=== PATIENT | female | born 1940 | race African-American/Black ===

== ENCOUNTER 2016-05-05 09:50 | Outpatient (RCR) | payer OTHER | END 2016-05-31 | disposition home or self-care (01) | LOC: PTY 09:50 | PROVIDERS: ATTEND Internal Medicine | DX: M25.511 Pain in right shoulder (principal); M25.562 Pain in left knee; I10 Essential (primary) hypertension; J45.909 Unspecified asthma, uncomplicated; Z85.43 Personal history of malignant neoplasm of ovary; Z91.81 History of falling | CPT/HCPCS: 97110; G0283 ==